=== PATIENT | female | born 1990 | race American Indian/Alaskan Native ===

== ENCOUNTER 2017-09-20 10:03 | Day surgery (SDC) | payer BC ==
[2017-09-17 09:40] LABS: Basophils # (Auto) 0.1 K/mm3 (0.0-0.1); Basophils % (Auto) 0.7 % (0.0-1.8); Eosinophils # (Auto) 0.1 K/mm3 (0.0-0.4); Eosinophils % (Auto) 1.8 % (0.0-4.3); Hematocrit 36.9 % (30.3-42.9); Hemoglobin 12.2 gm/dl (10.1-14.3); Lymphocytes # (Auto) 3.1 K/mm3 (1.2-5.4); Mean Corpuscular HGB Conc 33 % (30-34); Mean Corpuscular Hemoglobin 30 pg (28-32); Mean Corpuscular Volume 91 fl (79-97); Monocytes # (Auto) 0.6 K/mm3 (0.0-0.8); Monocytes % (Auto) 7.1 % (0.0-7.3); Platelet Count 291 K/mm3 (140-440); Red Blood Count 4.06 M/mm3 (3.65-5.03); Red Cell Distribution Width 13.9 % (13.2-15.2)
[~2017-09-20 10:03] MED LIST: DEMEROL IV PRN; DILAUDID IV PRN; LACTATED RINGERS 1,000 ML IV SCH; VERSED IV NR; ZOFRAN IV PRN
[2017-09-20] MEDS ORDERED: ANCEF/STERILE WATER 2 GM/20 ML IV NR (12:00)
[2017-09-20] MEDS ORDERED: SUBLIMAZE ONE ×2 (12:16→14:21)
[2017-09-20] MEDS ORDERED: DIPRIVAN 10 MG/ML IV ONE (12:17)
[2017-09-20] MEDS ORDERED: XYLOCAINE MPF 2% ONE (13:13)
[2017-09-20] MEDS ORDERED: NACL 0.9% IR ONE (13:45)
[2017-09-20] MEDS ORDERED: DECADRON ONE (14:24)
[2017-09-20] MEDS ORDERED: REGLAN ONE (14:24)
[2017-09-20] MEDS ORDERED: ZOFRAN ONE (14:24)
[2017-09-20] MEDS ORDERED: NACL 0.9% 1000 ML 1,000 ML ONE (14:49)
[2017-09-20] MEDS: DILAUDID IV PRN ×2 (15:45→15:55)
--- NOTE | 2017-09-20 15:45 | Operative Report ---
PREOPERATIVE DIAGNOSIS: Macromastia. POSTOPERATIVE DIAGNOSIS: Macromastia. PROCEDURE: Bilateral reduction mammoplasty with nipple-areolar complex amputation. SURGEON: Julian Cha MD FIELD SALES SPECIALIST: James Masters CSA FINDINGS: 740 gm removed from the right breast, 620 gm removed from the left breast. DESCRIPTION OF PROCEDURE: The patient was brought to the operating room and placed on the table in supine position. Following administration of general anesthesia, bilateral breasts were prepped with Betadine solution and draped in usual sterile manner. A #10 blade scalpel was used to make a circumareolar skin incision followed by de-epithelization of inferior dermal pedicle. Modified Butler pattern skin markings were incised with scalpel, deepened through subcutaneous fat and breast tissue using electrocautery. Skin flaps were raised in standard manner as was fashioning of an inferior central mound pedicle. Breast tissue was resected inclusive of nipple-areolar complexes bilaterally in order to achieve the patient's goal of a B cup. Hemostasis controlled using electrocautery. Closure was performed over 10 mm DEE drains using interrupted and running subcuticular 2-0 Monocryl sutures. Mastisol, Steri-Strips, and sterile dressings applied. The patient tolerated the procedure well and returned to recovery room in stable condition. JOB# [id number] FTW/YANCI
[2017-09-20] MEDS ORDERED: DILAUDID ONE (15:46)
[2017-09-20] MEDS ORDERED: ZOFRAN IV PRN (15:49)
[2017-09-20 17:43] VITALS: BP 123/67
--- NOTE | 2017-09-20 19:32 | Anesthesia Day of Surgery ---
Anesthesia Day of Surgery - Day of Surgery Patient Examined: Yes Patient H&P Reviewed: Yes Patient is NPO: Yes
--- NOTE | 2017-09-20 19:33 | Anesthesia Consultation ---
Anesthesia Consult and Med Hx Date of service: 09/20/17 - Airway Anesthetic Teeth Evaluation: Good ROM Head & Neck: Adequate Mental/Hyoid Distance: Adequate Mallampati Class: Class II Intubation Access Assessment: Probably Good - Pulmonary Exam CTA: Yes - Cardiac Exam Cardiac Exam: RRR - Pre-Operative Health Status ASA Pre-Surgery Classification: ASA3 Proposed Anesthetic Plan: General - Central Nervous System Hx Psychiatric Problems: No - Other Systems Hx Alcohol Use: Yes (OCCA) Hx Substance Use: No
== END 2017-09-20 17:34 | disposition home or self-care (01) ==
LOC: OR 10:03
PROVIDERS: ATTEND Plastic Surgery
DX: N62 Hypertrophy of breast (principal); Z79.899 Other long term (current) drug therapy; Z91.013 Allergy to seafood
CPT/HCPCS: 19318; 36415; 84703; 85025; 88305; J0690; J1100; J1170; J2250; J2405; J2704; J2765; J3010; J7030; J7120

== ENCOUNTER 2017-11-29 11:16 | Day surgery (SDC) | payer BC ==
[2017-11-29] MEDS ORDERED: LACTATED RINGERS 1,000 ML IV SCH (13:43)
--- NOTE | 2017-11-29 13:44 | Anesthesia Consultation ---
Anesthesia Consult and Med Hx Date of service: 11/29/17 - Airway Anesthetic Teeth Evaluation: Good ROM Head & Neck: Adequate Mental/Hyoid Distance: Adequate Mallampati Class: Class I Intubation Access Assessment: Probably Good - Pulmonary Exam CTA: Yes - Cardiac Exam Cardiac Exam: RRR - Pre-Operative Health Status ASA Pre-Surgery Classification: ASA2 Proposed Anesthetic Plan: General - Pulmonary Hx Smoking: No Hx Respiratory Symptoms: No - Cardiovascular System Hx Hypertension: No - Central Nervous System Hx Neuromuscular Disorder: No Hx Psychiatric Problems: No - Gastrointestinal Hx Gastroesophageal Reflux Disease: No - Endocrine Hx Renal Disease: No Hx Cirrhosis: No Hx Thyroid Disease: No Hx Hyperthyroidism: No - Other Systems Hx Alcohol Use: Yes (OCCA) Hx Substance Use: No Hx Cancer: No - Additional Comments Anesthesia Medical History Comments: No GAC, No FHAC
[2017-11-29] MEDS ORDERED: VERSED IV NR (14:00)
[2017-11-29] MEDS ORDERED: ANCEF/STERILE WATER 2 GM/20 ML IV NR (14:00)
[2017-11-29 14:21] LABS: Hematocrit 35.5 % (30.3-42.9); Hemoglobin 11.8 gm/dl (10.1-14.3)
[2017-11-29] MEDS ORDERED: NACL 0.9% IR ONE (14:33)
[2017-11-29] MEDS ORDERED: DILAUDID ONE (14:45)
[2017-11-29] MEDS ORDERED: XYLOCAINE MPF 2% ONE (14:45)
[2017-11-29] MEDS ORDERED: DIPRIVAN 10 MG/ML IV ONE (14:46)
[2017-11-29] MEDS ORDERED: ZOFRAN ONE (14:50)
[2017-11-29] MEDS ORDERED: DECADRON ONE (14:50)
[2017-11-29] MEDS ORDERED: PERCOCET 5/325 PO PRN (16:43)
[2017-11-29] MEDS ORDERED: ZOFRAN IV PRN (16:43)
[2017-11-29] MEDS: DILAUDID IV PRN ×2 (17:10→17:25)
[2017-11-29 17:59] VITALS: BP 111/52
--- NOTE | 2017-11-29 20:34 | Operative Report ---
PREOPERATIVE DIAGNOSES: 1. Bilateral absence of nipples. 2. Bilateral acquired breast deformity. 3. Status post bilateral breast reduction with nipple areolar complex amputation. POSTOPERATIVE DIAGNOSES: 1. Bilateral absence of nipples. 2. Bilateral acquired breast deformity. 3. Status post bilateral breast reduction with nipple areolar complex amputation. PROCEDURE: Bilateral nipple reconstruction. SURGEON: Jluian Cha MD ACOUSTIC SENSOR OPERATOR: James Masters CSA DESCRIPTION OF PROCEDURE: The patient was brought to the operating room and placed on the table in supine position. Following administration of general anesthesia, bilateral breasts were prepped with Betadine solution and draped in the usual sterile manner. A #11 blade scalpel was used to incise preoperative markings for a flag shaped flap that was folded upon itself to form a cylinder, secured in place with interrupted 3-0 Monocryl sutures. Donor site was closed with interrupted 2-0 Monocryl sutures and prior to closure, a dermal base was deepithelialized underneath the nipple upon which it rested, secured in place with interrupted running subcuticular 3-0 Monocryl sutures. Mastisol, Steri-Strips, and sterile protective dressings were applied. The patient tolerated the procedure well and returned to recovery room in stable condition. JOB# [id number] FTW/YANCI
== END 2017-11-29 18:05 | disposition home or self-care (01) ==
LOC: OR 11:16
PROVIDERS: ATTEND Plastic Surgery
DX: N64.89 Other specified disorders of breast (principal); Z90.13 Acquired absence of bilateral breasts and nipples; Z91.013 Allergy to seafood; Z72.89 Other problems related to lifestyle
CPT/HCPCS: 19350; 36415; 81025; 85014; 85018; J0690; J1100; J1170; J2250; J2405; J2704; J7120